=== PATIENT | male | born 1980 | race African-American/Black ===

== ENCOUNTER 2018-03-16 04:40 | Emergency (ER) | payer SELFPAY ==
[2018-03-16] MEDS: 0.9 % SODIUM CHLORIDE 1,000 ML IV ONE (04:40)
--- NOTE | 2018-03-16 04:56 | ED Physician Documentation ---
General Adult - HISTORIAN Historian: patient - HPI Stated Complaint: abd pain, n/v Chief Complaint: General Adult Onset: days ago Timing: still present Severity: moderate Further Comments: yes (Pt is a 37 yo male with DMI who was released from [facility] yesterday after admission there for DKA. Pt has had abd pain and n/v today with some blood streaking with the n/v. Initial finger-stick glucose is 170.) - ROS CONST: no problems EYES/ENT: none CVS/RESP: none GI/: abdominal pain, vomiting, nausea MS/SKIN/LYMPH: other (healing ulcers on b/l LE's) - PAST HX Past History: hypertension Other History: diabetes Type 1 (with L BKA, Diabetic neuropathy; GERD) - SOCIAL HX Smoking History: cigarettes Alcohol Use: occasionally Drug Use: marijuana - FAMILY HX Family History: No (unk) - REVIEWED ASSESSMENTS Nursing Assessment Reviewed: Yes Vitals Reviewed: Yes <Jonah Lockwood - Last Filed: 03/16/18 06:58> - VITAL SIGNS Vital Signs: Vital Signs Temp Pulse Resp BP Pulse Ox 82 18 176/120 99 03/16/18 04:40 03/16/18 04:40 03/16/18 04:40 03/16/18 04:40 <Gracia Padron - Last Filed: 03/16/18 14:49> - PAST HX Allergies/Adverse Reactions: Allergies Allergy/AdvReac Type Severity Reaction Status Date / Time No Known Allergies Allergy Unverified 03/16/18 05:11 Home Medications: Ambulatory Orders Medication Instructions Recorded Insulin Aspart [Novolog] 4 unit SQ TID 03/16/18 Lansoprazole 30 mg PO DAILY 03/16/18 Morphine Sulfate [Morphine Sulfate 60 mg PO BID 03/16/18 ER] Pregabalin [Lyrica] 50 mg PO TID 03/16/18 Progress - Progress Progress: Venous blood gas pH=7.49 NS 1 L IVF (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 <Jonah Lockwood - Last Filed: 03/16/18 06:58> - Progress Progress: 0715: pt resting quietly in the room. waiting on records from where he was discharged 03.15.2018 DG 0850: He is in the room with his . She states that she is getting a hotel room for him to rest> He was discharged from in reviewing his records and discussing with him and his . The findings were for him to follow up with PCP . Take meds consistently (which they both say is "impossible" due to no prescriptions and the travel from [place] to [place] is the trip they were making) also he states his nausea is returning and he is moving all over the bed stating he has pain in his mid chest and up to his throat - also having pain down in to his belly and both legs. States the pain meds were not helping at all (he is not able to keep his eyes open with discussion). The discharge papers state he needed to follow up with GI and she states that is also impossible due to the travel. [facility] the pt at the hospital there and he was in DKA and they ignored it and they were trying to kill him. She also is asking what we will do for his pain. He reports pain is "100"/10. DG 0915: returned from [place] and in bed appears to be sleeping. After rousing pt with calling name 3 times he states his pain is no better. DG 1000: results negative. will discharge. encourage pt to find a PCP home and follow up consistently DG <Gracia Padron - Last Filed: 03/16/18 14:49> ED Results Lab/Radiology - Orders Orders: ED Orders Category Date Time Status CBC/PLATELET/DIFF Routine Lab 03/16/18 Ordered CMP Routine Lab 03/16/18 Ordered LIPASE Stat Lab 03/16/18 Ordered VENOUS BLOOD GAS Stat Lab 03/16/18 Ordered 0.9 % Sodium Chloride [Normal Saline] 1,000 ml Med 03/16/18 04:48 Active IV Q1H Lidocaine 2%Visc 15ml [Xylocaine] Med 03/16/18 04:45 Discontinued 300 mg .ROUTE .STK-MED ONE Mag Hydrox/Aluminum Hyd/Simeth [Mylanta] Med 03/16/18 04:45 Discontinued 30 ml PO .STK-MED ONE Mag Hydrox/Aluminum Hyd/Simeth [Mylanta] 30 ml Med 03/16/18 04:45 Discontinued Lidocaine 2%Visc 15ml [Xylocaine] 20 mg PHENobarb/HYOSCY/ATROPINE/SCOP [] 10 ml PO NOW <Jonah Lockwood - Last Filed: 03/16/18 06:58> - Lab Results Lab Results: Lab Results 03/16/18 03/16/18 03/16/18 05:00 05:00 05:00 WBC 5.20 K/ul K/ul (4.00-12.00) RBC 4.51 M/ul M/ul (3.90-5.20) Hgb 12.8 g/dL g/dL (12.0-18.0) Hct 37.8 % % (37.0-53.0) MCV 83.7 fl fl (80.0-100.0) MCH 28.3 pg pg (28.0-34.0) MCHC 33.8 g/dL g/dL (30.0-36.0) RDW 13.8 % % (11.3-14.3) Plt Count 317 K/mm3 K/mm3 (130-400) Neut % (Auto) 66.4 % % (39.0-79.0) Lymph % (Auto) 25.7 % % (16.0-50.0) Henderson % (Auto) 4.2 % % (0.0-11.0) Eos % (Auto) 1.9 % % (0.0-6.8) Baso % (Auto) 0.1 (0.0-1.5) Neut # (Auto) 3.5 # k/uL # k/uL (1.4-7.7) Lymph # (Auto) 1.3 # k/uL # k/uL (0.6-4.0) Henderson # (Auto) 0.2 # k/uL # k/uL (0.0-0.9) Eos # (Auto) 0.1 # k/uL # k/uL (0.0-0.6) Baso # (Auto) 0.0 # k/uL # k/uL (0.0-0.5) Reactive Lymphs % 1.7 % % (0.0-5.0) Reactive Lymphs # 0.1 # k/uL # k/uL (0.0-0.8) Sodium 136 mmol/L mmol/L (136-145) Potassium 3.2 mmol/L L mmol/L (3.5-5.1) Chloride 99 mmol/L mmol/L (98-107) Carbon Dioxide 22 mmol/L mmol/L (22-30) BUN 12 mg/dL mg/dL (9-20) Creatinine 0.90 mg/dL mg/dL (0.66-1.25) Est GFR ( Amer) > 60 (60 - ) Est GFR (Non-Af Amer) > 60 (60 - ) Glucose 199 mg/dL H mg/dL (74-106) Calcium 9.4 mg/dL mg/dL (8.4-10.2) Total Bilirubin 1.4 mg/dL H mg/dL (0.2-1.3) AST 24 U/L U/L (15-46) ALT 21 U/L U/L (13-69) Alkaline Phosphatase 116 U/L U/L (38-126) Total Protein 8.3 g/dL H g/dL (6.3-8.2) Albumin 4.2 g/dL g/dL (3.5-5.0) Lipase 24 U/L U/L (23-300) - Radiology Radiology Impressions: Examination: CT Chest/abdomen/pelvis History: CHEST AND ABDOMINAL PAIN X 4 DAYS W/VOMITTING (Hx) Comparison exams: None available Technique: CT Chest/abdomen/pelvis without IV protocol. Findings: Chest: At the right lung apex is a 5 mm noncalcified nodule. No other suspicious nodules identified. Remaining lung pleura, parenchyma, and pulmonary vascularity without gross abnormality. No evidence for spiculated lesion. No posterior pleural thickening. Anterior mediastinum and joe are without gross mass or pathologic adenopathy though sensitivity is reduced given exam technique. Cardiac silhouette is not enlarged. Mild anterior pericardial thickening. Lower neck structures are appropriate for age. Osseous structures without gross abnormality. Abdomen/pelvis: Liver, spleen, adrenals, pancreas, kidneys and gallbladder are without gross irregularity given exam technique. No gallstone. No suspicious renal calcifications. Ureters are nondilated in their course through the abdomen and pelvis. No central calcifications. Bladder margin within normal limits. Abdominal aorta without aneurysm. Mild peripheral atherosclerotic disease. Bowel unopacified limiting evaluation. Few small bowel air fluid levels. No abnormal dilation. Stool within the large bowel limiting sensitivity. No mesenteric inflammatory changes or free fluid. Surgical sutures in the region of the cecum/appendix. Osseous structures within normal limits. Impression: No acute upper abdominal organ inflammatory process. Few small bowel air-fluid levels . No abnormal bowel dilation or inflammation. No gallstone. No suspicious renal calcifications or abnormal ureteric dilation. 5 mm noncalcified right apical nodule - nonpathologic by CT criteria. Follow as clinically warranted. No lung consolidation or effusion. Electronically signed on Mar 16, 2018 9:58:17 AM CDT by: Jerad De La Garza - Orders Orders: ED Orders Category Date Time Status CBC/PLATELET/DIFF Routine Lab 03/16/18 05:00 Completed CMP Routine Lab 03/16/18 05:00 Completed LIPASE Stat Lab 03/16/18 05:00 Completed VENOUS BLOOD GAS Stat Lab 03/16/18 Ordered 0.9 % Sodium Chloride [Normal Saline] 1,000 ml Med 03/16/18 04:48 Discontinued IV Q1H 0.9 % Sodium Chloride [Sodium Chloride] 100 ml Med 03/16/18 05:04 Discontinued IV .STK-MED Famotidine/Pf [Pepcid] Med 03/16/18 05:00 Discontinued 20 mg .ROUTE .STK-MED ONE Famotidine/Pf [Pepcid] Med 03/16/18 05:04 Discontinued 20 mg .ROUTE .STK-MED ONE Lidocaine 2%Visc 15ml [Xylocaine] Med 03/16/18 04:45 Discontinued 300 mg .ROUTE .STK-MED ONE Mag Hydrox/Aluminum Hyd/Simeth [Mylanta] Med 03/16/18 04:45 Discontinued 30 ml PO .STK-MED ONE Mag Hydrox/Aluminum Hyd/Simeth [Mylanta] 30 ml Med 03/16/18 04:45 Discontinued Lidocaine 2%Visc 15ml [Xylocaine] 20 mg PHENobarb/HYOSCY/ATROPINE/SCOP [] 10 ml PO NOW <Gracia Padron - Last Filed: 03/16/18 14:49> General Adult Physical Exam - PHYSICAL EXAM GENERAL APPEARANCE: moderate distress EENT: pharynx normal NECK: normal inspection, supple RESPIRATORY: no resp distress, chest non-tender, breath sounds normal CVS: reg rate & rhythm, heart sounds normal ABDOMEN: soft, normal bowel sounds, tenderness (moderate epigastric pain, no guarding, no rebound) BACK: normal inspection, no CVA tenderness SKIN: other (healing ulcerations on b/l LE's) EXTREMITIES: other (L BKA; healing ulcerations on b/l LE's) NEURO: oriented X3, motor nml, other (diabetic neuropathy) <Jonah Lockwood - Last Filed: 03/16/18 06:58> - PHYSICAL EXAM GENERAL APPEARANCE: no distress EENT: eye inspection normal NECK: normal inspection RESPIRATORY: no resp distress CVS: reg rate & rhythm ABDOMEN: soft, other (reports pain (indicates epigastric) upon palpation no statements of increased pain. Bowel sounds normal ) BACK: normal inspection SKIN: other (healing ulcerations on b/l LE's - no drainge noted from areas on stump or leg. He reports phantom pain in stump leg ) NEURO: oriented X3, other (diabetic neuropathy- anxious states he has no where to go ) <Gracia Padron - Last Filed: 03/16/18 14:49> Discharge <Jonah Lockwood - Last Filed: 03/16/18 06:58> Decision to Admit: NO Date of Decison to Admit: 03/16/18 Decision Time: 10:00 <Gracia Padron - Last Filed: 03/16/18 14:49> Clincal Impression: Esophagitis determined by biopsy Referrals: Primary Doctor,No [Primary Care Provider] - 2 Days Additional Instructions: 1. Follow up with PCP 2. Continue meds as prescribed from [facility] - per discharge they prescribed insulin as well as morphine for pain 3. Monitor blood sugars 4. Return to ER for any concerns Condition: Stable Disposition: 01 HOME, SELF-CARE
[2018-03-16 05:05] LABS: BASOPHILS % 0.1 (0.0-1.5); EOSINOPHILS % 1.9 % (0.0-6.8); MEAN CORPUSCULAR HEMOGLOBIN 28.3 pg (28.0-34.0); MEAN CORPUSCULAR VOLUME 83.7 fl (80.0-100.0); MONOCYTES % 4.2 % (0.0-11.0); NEUTROPHILS # 3.5 # k/uL (1.4-7.7)
[2018-03-16] MEDS: FAMOTIDINE/PF 20 MG/2 ML VIAL ONE ×2 (05:10→07:38)
[2018-03-16 05:18] LABS: eGFR (African) > 60; eGFR (Non-African) > 60
[2018-03-16] MEDS: MAG HYDROX/ALUMINUM HYD/SIMETH 30 ML, Lidocaine 2%Visc 15ml 20 MG, PHENobarb/HYOSCY/ATR... PO ONE ×3 (05:30)
[2018-03-16] MEDS: 0.9 % SODIUM CHLORIDE 100 ML IV ONE (05:38)
[2018-03-16] MEDS: Lidocaine 2%Visc 15ml 20 MG/ML UDC ONE (05:38)
[2018-03-16] MEDS: MAG HYDROX/ALUMINUM HYD/SIMETH 30 ML UDC PO ONE (05:38)
[2018-03-16] MEDS: fentaNYL CITRATE/PF 100 MCG/ 2ML AMP IVP ONE ×2 (07:33→08:55)
[2018-03-16 11:40] VITALS: BP 159/107
--- NOTE | 2018-03-16 17:41 | Diagnostic Imaging Report ---
MAGDALENA PABLO [facility] [address] [facility].[address] [address] Report Submission Date: Mar 16, 2018 9:01:14 AM CDT Patient Study Name: KRISTIN GALAVIZ Date: Mar 16, 2018 8:30:59 AM CDT Modality Type: DX Gender: F Description: SPINE : [birth year] Institution: [facility] Physician: MAGDALENA PABLO Examination: Plain film thoracic spine History: T-SPINE, MID BACK PAIN X1 WEEK AFTER LIFTING A LARGE ROCK (Hx) Findings: 3 views of the thoracic spine demonstrates osteopenia. Degenerative wedging. Osteophyte formation. Mild kyphosis. No prevertebral regularity. Impression: Osteopenia and degenerative changes. Presumed age related degenerative wedging. If patient is experiencing neurologic symptoms, consider obtaining MRI to further evaluate. Electronically signed on Mar 16, 2018 9:01:14 AM CDT by: Jerad PONCE
--- NOTE | 2018-03-16 17:41 | Diagnostic Imaging Report ---
MAGDALENA PABLO [facility] [address] [facility].[address] [address] Report Submission Date: Mar 16, 2018 9:01:14 AM CDT Patient Study Name: KRISTIN GALAVIZ Date: Mar 16, 2018 8:30:59 AM CDT Modality Type: DX Gender: F Description: SPINE : [birth year] Institution: [facility] Physician: MAGDALENA PABLO Examination: Plain film thoracic spine History: T-SPINE, MID BACK PAIN X1 WEEK AFTER LIFTING A LARGE ROCK (Hx) Findings: 3 views of the thoracic spine demonstrates osteopenia. Degenerative wedging. Osteophyte formation. Mild kyphosis. No prevertebral regularity. Impression: Osteopenia and degenerative changes. Presumed age related degenerative wedging. If patient is experiencing neurologic symptoms, consider obtaining MRI to further evaluate. Electronically signed on Mar 16, 2018 9:01:14 AM CDT by: Jerad PONCE
== END 2018-03-16 10:00 | disposition home or self-care (01) ==
LOC: ED 04:40
DX: K20.9 Esophagitis, unspecified (principal)
CPT/HCPCS: 71250; 74176; 80053; 83690; 85025; A9270; J3010; J7030; 96365; 96375; 96376; 99284; S0028